=== PATIENT | male | born 1935 | race Caucasian/White ===

== ENCOUNTER → 2016-03-30 | Outpatient (CLI) | payer MEDICARE ==
--- NOTE | 2016-03-30 15:37 | Diagnostic Imaging Report ---
PA and lateral chest. INDICATION: Shortness of breath. FINDINGS: There are no prior studies available for comparison. The heart is mildly enlarged. There is a triple-lead pacemaker in place on the left. The leads seem to be in good position. Infiltrate and fluid are partially obscuring the right lung base. There is also a vague area of increased density about the right hilum. This may be secondary to pneumonia/atelectasis and fluid as well. The possibility that this is related to a neoplastic mass would be less likely but should still be considered. I would recommend that CT of the chest be performed for further study. The right upper lung and left lung are generally clear. The mediastinum is not widened. The osseous structures are intact. IMPRESSION: 1. There is right lower lobe pneumonia/atelectasis and a right pleural effusion. The abnormal density about the right hilum could be secondary to pneumonia/atelectasis alone. The possibility that there is an underlying neoplastic mass present should also be considered. Recommendations as above. 2. There is mild cardiomegaly with a triple-lead left-sided pacemaker in place. Dictated by: Dictated on workstation # [id number]
== END ==
LOC: RAD 14:07
PROVIDERS: ATTEND Internal Medicine
DX: J94.2 Hemothorax (principal)
CPT/HCPCS: 71020

== ENCOUNTER → 2016-05-02 | Outpatient (CLI) | payer MEDICARE ==
--- NOTE | 2016-05-02 11:27 | Diagnostic Imaging Report ---
Ultrasound of the chest. INDICATION: Swelling at thoracotomy incision. FINDINGS: There is a heterogeneous poorly defined 4.1 x 1.7 x 2.8 cm lesion seen in the right chest wall near the inferior aspect of the scapula close to the site of surgical incision with no internal blood flow seen with color Doppler which may relate to a hematoma. IMPRESSION: 4.1 cm heterogeneous hyperechoic area in the chest wall at the palpable lump which may relate to a hematoma. Correlate clinically. Dictated by: Dictated on workstation # [id number]
== END ==
LOC: RAD 09:01
PROVIDERS: ATTEND Nurse Practitioner
DX: R22.2 Localized swelling, mass and lump, trunk (principal); Z98.890 Other specified postprocedural states
CPT/HCPCS: 76604

== ENCOUNTER → 2021-03-17 | Outpatient (CLI) | payer MEDICARE ==
[2021-03-17 16:58] LABS: HEMOGLOBIN 11.5 g/dL (13.3-17.7)
[2021-03-17 17:00] LABS: WHITE BLOOD COUNT 28.4 10^3/uL (4.3-11.0)
[2021-03-17 17:06] LABS: ALBUMIN 3.5 GM/DL (3.2-4.5)
[2021-03-17 17:07] LABS: POTASSIUM 4.4 MMOL/L (3.6-5.0)
[2021-03-17 17:08] LABS: CALCIUM 8.8 MG/DL (8.5-10.1)
[2021-03-17 17:09] LABS: TOTAL PROTEIN 6.6 GM/DL (6.4-8.2)
[2021-03-17 17:11] LABS: BILIRUBIN,TOTAL 0.5 MG/DL (0.1-1.0)
[2021-03-17 17:13] LABS: CREATININE SERUM 1.11 MG/DL (0.60-1.30)
--- NOTE | 2021-03-17 18:30 | Diagnostic Imaging Report ---
INDICATION: Covid infection with cough and chest congestion PA and lateral views of the chest obtained with comparison made to study of 03/30/2016. Overall heart size and pulmonary vascularity are at the upper limits of normal. There is continued blunting of right costophrenic sulcus, however, previously identified right pleural effusion is markedly decreased. Left chest wall pacemaker and leads have similar appearances. There is no evidence of pneumothorax. IMPRESSION: Mild cardiomegaly and pulmonary venous congestion with improvement in right pleural fluid and/or thickening. No new abnormality or adverse change is seen. Dictated by: Dictated on workstation # [id number]
== END ==
LOC: RAD 16:16
PROVIDERS: ATTEND Nurse Practitioner Family
DX: J81.1 Chronic pulmonary edema (principal); I51.7 Cardiomegaly; Z86.16 Personal history of COVID-19
CPT/HCPCS: 36415; 71046; 80053; 85027

== ENCOUNTER → 2021-05-12 | Outpatient (CLI) | payer MEDICARE ==
[2021-05-12 15:01] LABS: MEAN CORPUSCULAR VOLUME 96 fL (80-99); MEAN PLATELET VOLUME 10.3 fL (9.0-12.2)
[2021-05-12 15:03] LABS: BASOPHILS # (AUTO) 0.1 10^3/uL (0.0-0.1); BASOPHILS % (AUTO) 0 % (0-10); EOSINOPHILS # (AUTO) 0.4 10^3/uL (0.0-0.3); EOSINOPHILS % (AUTO) 2 % (0-10); HEMATOCRIT 39 % (40-54); HEMOGLOBIN 12.8 g/dL (13.3-17.7); LYMPHOCYTES % (AUTO) 64 % (12-44); MEAN CORPUSCULAR HEMOGLOBIN 32 pg (25-34); MEAN CORPUSCULAR HGB CONC 33 g/dL (32-36); MONOCYTES # (AUTO) 1.8 10^3/uL (0.0-1.0); MONOCYTES % (AUTO) 10 % (0-12); NEUTROPHILS # (AUTO) 4.5 10^3/uL (1.8-7.8); NEUTROPHILS % (AUTO) 24 % (42-75); PLATELET COUNT 137 10^3/uL (130-400); WHITE BLOOD COUNT 18.8 10^3/uL (4.3-11.0)
[2021-05-12 15:20] LABS: EOSINOPHILS % (MANUAL) 1 %; LYMPHOCYTES % (MANUAL) 68 %; MONOCYTES % (MANUAL) 6 %; NEUTROPHILS % (MANUAL) 25 %; RBC MORPH NORMAL
[2021-05-12 15:23] LABS: ALANINE AMINOTRANSFERASE 14 U/L (0-55); ALBUMIN 4.1 GM/DL (3.2-4.5); ALKALINE PHOSPHATASE 97 U/L (40-136); BILIRUBIN,TOTAL 0.5 MG/DL (0.1-1.0); BUN/CREATININE RATIO 15; CALCIUM 9.2 MG/DL (8.5-10.1); CARBON DIOXIDE 23 MMOL/L (21-32); CHLORIDE 105 MMOL/L (98-107); CREATINE KINASE 52 U/L (30-200); GFR ESTIMATED 58; GLUCOSE 100 MG/DL (70-105); POTASSIUM 4.4 MMOL/L (3.6-5.0); SODIUM 142 MMOL/L (135-145); TOTAL PROTEIN 6.9 GM/DL (6.4-8.2)
== END ==
LOC: CARD 14:36
PROVIDERS: ATTEND Nurse Practitioner Family
DX: R07.9 Chest pain, unspecified (principal)
CPT/HCPCS: 36415; 80053; 82550; 84484; 85007; 85027; 93005

== ENCOUNTER → 2021-11-25 | Outpatient (CLI) | payer MEDICARE ==
--- NOTE | 2021-11-25 14:22 | Diagnostic Imaging Report ---
INDICATION: Cough and congestion. Comparison is made with prior exam of 03/17/21 FINDINGS: The heart size is normal. There is some air trapping compatible with COPD and emphysema. Some scarring in the lung bases. No pleural effusion or pneumothorax. The mediastinum is unremarkable. Pacemaker overlies left hemithorax. IMPRESSION: COPD and some chronic appearing emphysematous scarring in the lung bases. Dictated by: Dictated on workstation # [id number]
== END ==
LOC: RAD 13:33
PROVIDERS: ATTEND Nurse Practitioner Family
DX: J44.9 Chronic obstructive pulmonary disease, unspecified (principal)
CPT/HCPCS: 71046

== ENCOUNTER → 2021-12-02 | Outpatient (CLI) | payer MEDICARE ==
--- NOTE | 2021-12-02 17:41 | Diagnostic Imaging Report ---
CT Chest w/o TECHNIQUE: Multiple contiguous axial images were obtained through the chest without the use of intravenous contrast. All CT scans use one or more of the following dose optimizing techniques: automated exposure control, MA and/or KvP adjustment based on patient size and exam type or iterative reconstruction. INDICATION: Cough. COMPARISON: Chest radiograph from 11/25/2021 and 03/30/2016. FINDINGS: Lungs and airway: No abnormality in the trachea. A small amount of retained secretions are present in the right mainstem bronchus. There is no pneumonia or edema. Linear atelectasis within the right middle lobe. There are no suspicious pulmonary nodules. Pleura: No pleural effusion or pneumothorax. Heart and mediastinum: No supraclavicular or axillary lymphadenopathy. No mediastinal or hilar lymphadenopathy. Normal caliber thoracic aorta. Heart is mildly enlarged. One of the leads for the biventricular pacemaker loops in the IVC and terminates in the coronary sinus. Upper abdomen: Pneumobilia is present. Exophytic cyst in the upper pole left kidney. Musculoskeletal: Old fracture deformities in the posterior aspect of the right ribs. IMPRESSION: 1. No pneumonia or interstitial lung disease. 2. No intrathoracic lymphadenopathy. Dictated by: Dictated on workstation # [id number]
== END ==
LOC: RAD 14:14
PROVIDERS: ATTEND Nurse Practitioner Family
DX: J44.9 Chronic obstructive pulmonary disease, unspecified (principal)
CPT/HCPCS: 71250